=== PATIENT | female | born 1965 | race Caucasian/White ===

== ENCOUNTER → 2017-01-20 | Outpatient (CLI) | payer OTHER ==
--- NOTE | 2017-01-20 14:20 | XR ---
EXAMINATION TYPE: XR shoulder complete LT DATE OF EXAM: 01/20/2017 COMPARISON: NONE HISTORY: 51 year-old female left shoulder pain. TECHNIQUE: 3 views FINDINGS: Mild degenerative spurring at the AC joint. Subacromial space is preserved. No tendinous or bursal ca lcifications. No acute fracture, subluxation, or dislocation. Visualized left hemithorax is clear. Pa rtially visualized ACDF hardware. IMPRESSION: No acute osseous abnormality seen.
== END | disposition home or self-care (01) ==
LOC: RADXRMAIN 12:51
PROVIDERS: ATTEND Psychiatry & Neurology Clinical Neurophysiology
DX: M25.512 Pain in left shoulder (principal)

== ENCOUNTER 2017-04-20 07:52 | Day surgery (SDC) | payer MEDICARE ==
[2017-04-14 15:05] VITALS: BMI 29.9
[~2017-04-20 07:52] MED LIST: HEPARIN SODIUM,PORCINE 5,000 UNIT/ML 1 ML VIAL SQ ONE; LACTATED RINGERS 1,000 ML IV SCH; ONDANSETRON 4 MG/2 ML VIAL IVP PRN; ceFAZolin 2 GM in SODIUM CHLORIDE 0.9% 100 ML IVPB ONE
[2017-04-20] MEDS ORDERED: LIDOCAINE 1% 20 ML VIAL (10MG/ML) FOR IV START INTRADERMA ONE (08:17)
[2017-04-20] MEDS ORDERED: SCOPOLAMINE 1.5MG/72HR PATCH TRANSDERM ONE (08:18)
[2017-04-20] MEDS ORDERED: HEPARIN SODIUM,PORCINE 5,000 UNIT/ML 1 ML VIAL SQ ONE (08:36)
[2017-04-20] MEDS ORDERED: MIDAZOLAM 2 MG/2 ML VIAL ONE (09:13)
[2017-04-20] MEDS ORDERED: SUCCINYLCHOLINE CHLORIDE 100 MG/5 ML SYR IV ONE (09:13)
[2017-04-20] MEDS ORDERED: ROCURONIUM BROMIDE 10 MG/ML 10 ML VIAL IV ONE (09:13)
[2017-04-20] MEDS ORDERED: NEOSTIGMINE 1 MG/ML 10 ML VIAL ONE (09:13)
[2017-04-20] MEDS ORDERED: PROPOFOL 10 MG/ML 20 ML VIAL IV ONE (09:13)
[2017-04-20] MEDS ORDERED: fentaNYL (PF) 50 MCG/ML 2 ML AMP ONE (09:13)
[2017-04-20] MEDS ORDERED: LIDOCAINE 1% INJ 10MG/ML (20 ML MDV) ONE (09:13)
[2017-04-20] MEDS ORDERED: ePHEDrine SULFATE/0.9% NACL/PF 50 MG/5 ML SYRINGE IV ONE (09:13)
[2017-04-20] MEDS ORDERED: GLYCOPYRROLATE 0.2 MG/ML 2 ML VIAL ONE ×2 (09:13)
[2017-04-20] MEDS ORDERED: LIDOCAINE 1% INJ 10MG/ML (20 ML MDV) SQ ONE ×2 (09:42)
[2017-04-20] MEDS ORDERED: LACTATED RINGERS 1,000 ML IV ONE ×2 (10:05→12:09)
--- NOTE | 2017-04-20 10:21 | P.OP ---
Date of Procedure: 04/20/17 Preoperative Diagnosis: Hyperkinetic gallbladder disease Postoperative Diagnosis: Same, adhesions between the liver and abdominal wall/diagphram Procedure(s) Performed: Laparoscopic cholecystectomy, laparoscopic lysis of adhesions Anesthesia: JENNIFER Surgeon: Tonya Matthews Cotton Opener #1: Ashley Walker Estimated Blood Loss (ml): 10 IV fluids (ml): 800 Pathology: other (The gallbladder) Condition: stable Disposition: PACU Indications for Procedure: With epigastric/right upper quadrant pain Pain reproduced with CCK ejection HIDA scan Operative Findings: Adhesions between liver and anterior abdominal wall/diaphragm Distended gallbladder Description of Procedure: Patient was taken to the operating room and following induction of general anesthesia the abdomen was prepped and draped in a sterile fashion. A insufflated was introduced in the left upper quadrant. The abdomen was insufflated to 15 mmHg pressure. #5 Optiview camera was introduced under direct visualization. The patient was noted to have adhesions to the liver and the intra-abdominal wall/diaphragm as well as some adhesions in the lower abdomen related to her prior C-sections. #5 camera was then placed under direct visualization in the infraumbilical area. This was done being careful to avoid any adhesions. Following this the camera was moved to the infraumbilical site and the #5 port site in the left upper quadrant was changed to a #10 port site. Patient was placed in Trendelenburg and rotated to the left. 2 #5 ports were placed in the right side of the abdomen to facilitate traction on the gallbladder. Following this the tissues to take down the adhesions between the liver and the anterior abdominal wall/diaphragm. Approximately 10 minutes were taken. These adhesions down. After this the gallbladder was grasped and the the gallbladder was retracted such that the cystic duct and cystic artery could be identified. These were clearly identified and stapled and divided. The gallbladder was then taken down from its peritoneal attachments to the liver bed using the electrocautery device. The gallbladder was noted to be somewhat inflamed and intrahepatic. The gallbladder was then placed in a Pleatman sac and brought out through the #10 port site. The gallbladder fossa was irrigated no evidence of any bleeding was identified. Following this the #10 port site was removed and a Dillan Villeda device was placed. The defect in the fascia was closed using 0 Vicryl suture. This is followed by removal of the other #5 port sites under direct visualization no bleeding was identified. The the camera site was then removed. The skin incisions were closed using 4-0 Monocryl. Patient tolerated procedure in stable condition. All instrument and sponge counts were correct at the end of the case. Thank you this is a dictation on patient Ayaka Zhang.
--- NOTE | 2017-04-20 10:23 | P.DS ---
Providers Attending physician: Tonya Matthews Primary care physician: Lolly Regan Plan - Discharge Summary New Discharge Prescriptions: No Action Citalopram Hydrobromide [CeleXA] 40 mg PO HS Omeprazole 40 mg PO DAILY Discharge Medication List Citalopram Hydrobromide [CeleXA] 40 mg PO HS 04/14/17 [History] Omeprazole 40 mg PO DAILY 04/14/17 [History] Follow up Appointment(s)/Referral(s): Tonya Matthews MD [STAFF PHYSICIAN] - 2 Weeks Activity/Diet/Wound Care/Special Instructions: Do not drive today, do not drive if using narcotic pain medication No heavy lifting nothing over 10 pounds Discharge Disposition: HOME SELF-CARE
[2017-04-20 10:39] VITALS: TEMP 97.1
[2017-04-20] MEDS ORDERED: ONDANSETRON 4 MG/2 ML VIAL IVP ONE (10:48)
[2017-04-20] MEDS: HYDROmorphone 0.5 MG/0.5 ML SYRINGE IVP PRN ×3 (10:54→11:17)
[2017-04-20 11:16] VITALS: RESP 16
[2017-04-20 13:20] VITALS: BP 116/62; PULSE 70
== END 2017-04-20 14:06 | disposition home or self-care (01) ==
LOC: OR 07:52
PROVIDERS: ATTEND Surgery
DX: K81.1 Chronic cholecystitis (principal); K66.0 Peritoneal adhesions (postprocedural) (postinfection); I89.8 Other specified noninfective disorders of lymphatic vessels and lymph nodes; K21.9 Gastro-esophageal reflux disease without esophagitis; M19.90 Unspecified osteoarthritis, unspecified site; Z87.891 Personal history of nicotine dependence; Z87.442 Personal history of urinary calculi; Z79.899 Other long term (current) drug therapy; R13.10 Dysphagia, unspecified
CPT/HCPCS: 47562; 81025; 88304; J2250; J1644; J2710; J0690; J2405; J2001; J3010; J0330; J2704; J1170

== ENCOUNTER → 2017-11-17 | Outpatient (CLI) | payer MEDICARE, OTHER ==
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
--- NOTE | 2017-11-18 08:56 | MR ---
EXAMINATION TYPE: MR shoulder LT wo con DATE OF EXAM: 11/17/2017 COMPARISON: Left shoulder x-ray January 20, 2017 HISTORY: Impingement syndrome, fall injury with Limited ROM TECHNIQUE: Multiplanar, multisequence imaging of the left shoulder is performed without contrast. FINDINGS: Rotator Cuff: Supraspinatus and infraspinatus tendons are both intact to humeral head attachment. The re is no suspicious retracted full-thickness tear. Rotator cuff muscle bulk is preserved. Subscapular is tendon is intact. Acromioclavicular Joint: There is type II downsloping acromion with loss inferior fat plane. There is mild to moderate joint space loss and capsular hypertrophy at acromioclavicular joint, inferior fat plane at this level is maintained. Glenohumeral Joint: There is small to moderate-sized glenohumeral joint effusion. There is moderate n arrowing most prominent inferiorly where there is subchondral cystic change in the anterior aspect of the inferior osseous glenoid seen best paracoronal image 11. Some spurring inferiorly is present. Labrum: The labrum appears grossly intact given limitation of non-arthrogram study. Biceps Tendon: The long head of biceps is in normal location within bicipital groove. Bone marrow signal: Mild subchondral cystic change also seen in the superolateral humeral head near g reater tuberosity. Other: No additional significant abnormality is appreciated. IMPRESSION: 1. No rotator cuff or labral tear identified. 2. Type II downsloping acromion with possible underlying impingement. 3. Mild to moderate degenerative changes most prominent inferior glenohumeral joint as detailed above .
== END | disposition home or self-care (01) ==
LOC: RADMRIMAIN 21:15
PROVIDERS: ATTEND Family Medicine
DX: M47.812 Spondylosis without myelopathy or radiculopathy, cervical region (principal); M25.811 Other specified joint disorders, right shoulder; Z98.890 Other specified postprocedural states
CPT/HCPCS: 72156; 73221; A9581

== ENCOUNTER → 2018-08-18 | Outpatient (CLI) | payer MEDICARE, OTHER ==
--- NOTE | 2018-08-18 14:23 | US ---
EXAMINATION TYPE: US thyroid st tissue head/neck DATE OF EXAM: 08/18/2018 COMPARISON: NONE CLINICAL HISTORY: E21.0 Primary hyperparathyroidism. GLAND SIZE: Right Lobe: 4.7 x 1.0 x 1.8 cm Overall Parenchyma: homogenous Left Lobe: 5.2 x 0.5 x 1.5 cm Overall Parenchyma: homogeneous Isthmus Thickness: 0.1 cm NODULES RIGHT: # of nodules measured on right: 2 1. 0.6 X 0.3 x 0.3 cm solid nodule at the mid pole with poorly defined margins; . This nodule is w ider than tall and shows intranodular vascularity. Prior size: no prior 2. 0.4 X 0.3 x 0.3 cm mixed nodule at the mid pole with well-defined margins; . This nodule is wider than tall and shows intranodular vascularity. Prior size: no prior LEFT: # of nodules measured on left: 0 left inferior possible parathyroid area 1.2 x 0.7 x 3.1 cm peripheral vascularity ISTHMUS: # of nodules measured in the isthmus: 0 Bilateral neck scanned, no evidence of lymphadenopathy. IMPRESSION: Nonspecific nodularity. Possible left inferior parathyroid.
== END | disposition home or self-care (01) ==
LOC: RADUSWWP 13:03
PROVIDERS: ATTEND Internal Medicine Endocrinology, Diabetes & Metabolism
DX: E04.2 Nontoxic multinodular goiter (principal)
CPT/HCPCS: 76536

== ENCOUNTER → 2018-09-14 | Outpatient (CLI) | payer OTHER ==
[2018-09-14 13:47] LABS: HCT 43.1 % (34.0-46.0); HGB 14.7 gm/dL (11.4-16.0); MCH 31.2 pg (25.0-35.0); MCV 91.9 fL (80.0-100.0); Mean Platelet Volume 8.6; Platelet Count 254 k/uL (150-450); RBC 4.69 m/uL (3.80-5.40); RDW 12.7 % (11.5-15.5); WBC 7.1 k/uL (3.8-10.6)
[2018-09-14 19:26] LABS: Albumin 4.9 g/dL (3.80-4.90); Albumin/Globulin Ratio 2.13 (1.60-3.17); Anion Gap 8.8 mmol/L (4.00-12.00); Bilirubin, Conjugated 0.2 mg/dL (0.20-0.40); Bilirubin,Unconjugated 0.6 mg/dL; Calcium 11.4 mg/dL (8.7-10.3); Carbon Dioxide 27.2 mmol/L (21.6-31.8); Globulin 2.3 g/dL (1.6-3.3); Potassium 4.2 mmol/L (3.5-5.5); Total Bilirubin 0.8 mg/dL (0.3-1.2); Total Protein 7.2 g/dL (6.2-8.2)
== END | disposition home or self-care (01) ==
LOC: LABWHC1 13:14
PROVIDERS: ATTEND Psychiatry & Neurology Clinical Neurophysiology
DX: D50.9 Iron deficiency anemia, unspecified (principal); R94.5 Abnormal results of liver function studies; R94.4 Abnormal results of kidney function studies
CPT/HCPCS: 36415; 80048; 80076; 85027

== ENCOUNTER → 2018-10-28 | Outpatient (CLI) | payer OTHER ==
[2018-10-28 15:44] LABS: Basophils % (A) 1 %; Eosinophils # (A) 0.2 k/uL (0-0.7); Eosinophils % (A) 2 %; HCT 42.2 % (34.0-46.0); HGB 14.4 gm/dL (11.4-16.0); Lymphocytes # (A) 2.6 k/uL (1.0-4.8); Lymphocytes % (A) 34 %; MCHC 34.1 g/dL (31.0-37.0); MCV 90.9 fL (80.0-100.0); Mean Platelet Volume 8.6; Monocytes # (A) 0.3 k/uL (0-1.0); Monocytes % (A) 4 %; Neutrophils # (A) 4.4 k/uL (1.3-7.7); Neutrophils % (A) 58 %; Platelet Count 251 k/uL (150-450); RBC 4.65 m/uL (3.80-5.40); RDW 12.3 % (11.5-15.5); WBC 7.6 k/uL (3.8-10.6)
[2018-10-28 23:16] LABS: Albumin 4.5 g/dL (3.80-4.90); Albumin/Globulin Ratio 2.5 (1.60-3.17); Anion Gap 9.1 mmol/L (4.00-12.00); Calcium 9.6 mg/dL (8.7-10.3); Carbon Dioxide 25.9 mmol/L (21.6-31.8); Globulin 1.8 g/dL (1.6-3.3); Potassium 4.2 mmol/L (3.5-5.5); Total Bilirubin 0.5 mg/dL (0.3-1.2); Total Protein 6.3 g/dL (6.2-8.2)
== END | disposition home or self-care (01) ==
LOC: LABWHC1 14:05
PROVIDERS: ATTEND Psychiatry & Neurology Clinical Neurophysiology
DX: D50.9 Iron deficiency anemia, unspecified (principal); R94.5 Abnormal results of liver function studies; R94.4 Abnormal results of kidney function studies
CPT/HCPCS: 36415; 80053; 85025

== ENCOUNTER → 2019-08-31 | Outpatient (CLI) | payer OTHER ==
[2019-08-31 12:55] LABS: Basophils % (A) 0 %; Eosinophils # (A) 0.1 k/uL (0-0.7); Eosinophils % (A) 3 %; HCT 42.5 % (34.0-46.0); HGB 14.1 gm/dL (11.4-16.0); Lymphocytes # (A) 1.9 k/uL (1.0-4.8); Lymphocytes % (A) 33 %; MCH 29.9 pg (25.0-35.0); MCHC 33.3 g/dL (31.0-37.0); MCV 89.9 fL (80.0-100.0); Mean Platelet Volume 9.1; Monocytes # (A) 0.3 k/uL (0-1.0); Monocytes % (A) 4 %; Neutrophils # (A) 3.3 k/uL (1.3-7.7); Neutrophils % (A) 58 %; Platelet Count 233 k/uL (150-450); RBC 4.72 m/uL (3.80-5.40); RDW 12.2 % (11.5-15.5); WBC 5.8 k/uL (3.8-10.6)
[2019-08-31 18:45] LABS: African American GFR (CKD) 75.5 (60.0-200.0); Albumin 4.6 g/dL (3.80-4.90); Albumin/Globulin Ratio 2.71 (1.60-3.17); Anion Gap 8.1 mmol/L (4.00-12.00); Calcium 9.8 mg/dL (8.7-10.3); Carbon Dioxide 27.9 mmol/L (21.6-31.8); Globulin 1.7 g/dL (1.6-3.3); Non-African American GFR(CKD) 65.2 (60.0-200.0); Potassium 4.4 mmol/L (3.5-5.5); Total Bilirubin 0.6 mg/dL (0.3-1.2); Total Protein 6.3 g/dL (6.2-8.2)
== END ==
LOC: LABWHC1 11:44
PROVIDERS: ATTEND Psychiatry & Neurology Clinical Neurophysiology
DX: D50.9 Iron deficiency anemia, unspecified (principal); R94.5 Abnormal results of liver function studies; R94.4 Abnormal results of kidney function studies
CPT/HCPCS: 36415; 80053; 85025

== ENCOUNTER → 2022-07-09 | Outpatient (CLI) | payer MEDICARE ==
--- NOTE | 2022-07-12 13:09 | MM ---
Reason for Exam: Screening (asymptomatic). Patient History: 2011, Lumpectomy on the Left side. 2013, Bilateral Implants. Maternal grandmother had breast cancer under age 50. Risk Values: Danielle 5 year model risk: 0.7%. NCI Lifetime model risk: 5.6%. Tissue Density: There are scattered fibroglandular densities. Findings: Analyzed By CAD. Bilateral retropectoral silicone implants are redemonstrated. Chronic nodularity lateral left breast. No significant change from prior exams otherwise seen. Overall Assessment: Benign, BI-RAD 2 Management: Screening Mammogram of both breasts in 1 year. 1. Patient should continue monthly self breast exams. 2. A clinical breast exam by your physician is recommended on an annual basis. 3. This exam should not preclude additional follow-up of suspicious palpable abnormalities. Electronically signed and approved by: Patrick Cooper M.D. Radiologist
== END | disposition home or self-care (01) ==
LOC: RADMAMWWP 13:47
PROVIDERS: ATTEND Family Medicine
DX: Z12.31 Encounter for screening mammogram for malignant neoplasm of breast (principal); R92.8 Other abnormal and inconclusive findings on diagnostic imaging of breast; Z80.3 Family history of malignant neoplasm of breast
CPT/HCPCS: 77063; 77067

== ENCOUNTER → 2023-05-11 | Outpatient (CLI) | payer MEDICARE ==
--- NOTE | 2023-05-11 14:37 | FL ---
EXAMINATION TYPE: FL UGI air w small bowel DATE OF EXAM: 05/11/2023 COMPARISON: NONE HISTORY: 57-year-old female K31.84, gastroparesis, episodes of sharp abdominal pain after eating and diarrhea. Reported history of gastric ulcer. TECHNIQUE: A double contrast UGI study is performed with small bowel follow through. A total of 2 m inutes 3 seconds of fluoroscopic time was utilized during procedure and 49 images obtained. Total do se area product (DAP) in uGy*m?, mGy*cm? (or similar): 50. FINDINGS: ACF hardware. Esophagus shows only minimal tertiary peristaltic waves. There is normal esophageal course and calibe r. No mucosal lesion or fixed narrowing is seen. No abnormal filling defect. We note a tiny sliding hiatal hernia and spontaneous mild episode of gastroesophageal reflux during s upine turning maneuvers. The stomach shows normal distensibility, peristalsis, and mucosal folds. No evidence of any mass or ulcer disease. No significant esophageal reflux was seen during real time performance of this study. The duodenal bulb and sweep are unremarkable. The small bowel study shows normal transit to the colon in less than 1 hour 30 minutes. There is norm al mucosal fold pattern throughout the small bowel. There is no evidence of any stricture or filling defect noted. The terminal ileum is unremarkable. Appendix is visualized filling with contrast and normal. IMPRESSION: 1. Tiny sliding hiatal hernia with an episode of mild gastroesophageal reflux. 2. Otherwise, unremarkable upper GI examination. 3. Small bowel transit time of 1 hour 30 minutes, normal. Normal small bowel follow through.
== END | disposition home or self-care (01) ==
LOC: RADFLMAIN 08:25
PROVIDERS: ATTEND Family Medicine
DX: K31.84 Gastroparesis (principal); K44.9 Diaphragmatic hernia without obstruction or gangrene; K21.9 Gastro-esophageal reflux disease without esophagitis; Z87.11 Personal history of peptic ulcer disease
CPT/HCPCS: 74240; 74248

== ENCOUNTER → 2024-11-08 | Outpatient (CLI) | payer MEDICARE ==
--- NOTE | 2024-11-08 19:42 | MR ---
EXAMINATION TYPE: MR cervical spine wo/w con DATE OF EXAM: 11/08/2024 7:06 PM COMPARISON: 11/27/2017 CLINICAL INDICATION: Female, 59 years old with history of M54.2 CERVICALGIA R51.9 HEADACHE, UNSPECIFI ED; PHH, Neck pain, Headaches, Sounds in ears, Bilateral arm weakness, Hx fall in Jun 2024, Hx Neck s urgery 2010 TECHNIQUE: Multi planar, multi sequence imaging was performed utilizing: T1-weighted, T2-weighted, an d turbo inversion recovery imaging of the cervical spine. IV Contrast: 7.5 mL Gadobutrol (None, if empty) FINDINGS: Alignment: The cervical vertebral bodies have preserved heights. Grade 1 anterolisthesis of C4 on C5. Bones: Anterior fixation hardware at C6 and C7. Bone signal is within normal limits. No abnormal bone marrow edema on inversion recovery sequences. Cord: The spinal cord is unremarkable with regards to their signal intensity and morphology. Discs: Intervertebral disc signal is maintained. C2-C3: No significant disc pathology. The spinal canal is patent. No neural foraminal stenosis. C3-C4: No significant disc pathology. The spinal canal is patent. Bilateral facet and uncovertebral joint arthropathy are present with mild right neural foraminal stenosis. The left neural foramen is p atent. C4-C5: A disc osteophyte complex is present with mild spinal canal stenosis. Bilateral facet and unc overtebral joint arthropathy are present with moderate left and mild right neural foraminal stenosis. C5-C6: A disc osteophyte complex is present with mild spinal canal stenosis. Bilateral facet and unc overtebral joint arthropathy are present with mild bilateral neural foraminal stenosis. C6-C7: A left central disc osteophyte complex is present with moderate spinal canal stenosis. Bilate ral facet and uncovertebral joint arthropathy are present with mild left neural foraminal stenosis. T he right neural foramen is patent. C7-T1: No significant disc pathology. The spinal canal is patent. No neural foraminal stenosis. Other: No abnormal postcontrast enhancement. IMPRESSION: Overall findings have not significantly changed from prior. 1. No evidence for disc herniation or significant spinal canal stenosis. 2. [id number]-kq-qhmollan disc degeneration with associated osteoarthritic changes. No foraminal stenosis w orse at C5 on the left with at least moderate 3. Grade 1 anterolisthesis of C4 on C5. 4. Fusion hardware at C6-C7 with hardware present. Spinal canal stenosis worse with moderate at C7 wi th osteophyte impressing on the left spinal cord. [facility], , 11/08/2024 7:40 PM
== END | disposition home or self-care (01) ==
LOC: RADMRIMAIN 17:55
PROVIDERS: ATTEND Family Medicine
DX: M51.360 Other intervertebral disc degeneration, lumbar region with discogenic back pain only (principal); M47.812 Spondylosis without myelopathy or radiculopathy, cervical region; M43.12 Spondylolisthesis, cervical region; M25.78 Osteophyte, vertebrae; Z98.1 Arthrodesis status; H93.13 Tinnitus, bilateral; M48.02 Spinal stenosis, cervical region
CPT/HCPCS: 72156; A9585